=== PATIENT | female | born 1975 | race Caucasian/White ===

== ENCOUNTER 2016-05-20 10:38 | Emergency (ER) | payer OTHER ==
[~2016-05-20] VITALS: Ht 175.3 cm; Wt 83.9 kg
[2016-05-20] MEDS ORDERED: PHENERGAN 25 MG25 M1 PO (13:16)
[2016-05-20] MEDS ORDERED: VENTOLIN HFA 1818 GM INH (13:16)
[2016-05-20] MEDS ORDERED: PREDNISONE 20 M20 MG PO (13:16)
[2016-05-20 13:30] VITALS: BP 155/88
== END 2016-05-20 13:31 | disposition home or self-care (01) ==
LOC: ER 10:38
DX: J20.8 Acute bronchitis due to other specified organisms (principal); Z88.0 Allergy status to penicillin

== ENCOUNTER 2016-08-23 05:13 | Emergency (ER) | payer OTHER ==
[~2016-08-23] VITALS: Ht 175.3 cm; Wt 81.7 kg
[~2016-08-23 05:13] MED LIST: PHENERGAN 25 MG25 M1 PO; PREDNISONE 20 M20 MG PO; VENTOLIN HFA 1818 GM INH
[2016-08-23] MEDS ORDERED: NEURONTIN600 MG PO (05:26)
[2016-08-23] MEDS ORDERED: PREDNISONE 20 M20 MG PO (05:33)
[2016-08-23] MEDS ORDERED: TESSALON PERLE100 MG PO (05:33)
[2016-08-23 06:16] VITALS: BP 131/97
== END 2016-08-23 06:17 | disposition home or self-care (01) ==
LOC: ER 05:13
DX: J45.901 Unspecified asthma with (acute) exacerbation (principal); Z88.0 Allergy status to penicillin; F17.210 Nicotine dependence, cigarettes, uncomplicated; F12.10 Cannabis abuse, uncomplicated